=== PATIENT | male | born 1955 ===

== ENCOUNTER 2024-06-11 04:15 | Day surgery (SDC) | payer OTHER ==
[2024-06-03 16:09] VITALS: BMI 28.3
[2024-06-11] MEDS ORDERED: BUPIVACAINE HCL/PF 0.25% (2.5MG/ML) 10 ML VIAL ONE (07:21)
[2024-06-11] MEDS ORDERED: HEPARIN NA (PORCINE) 5,000 UNITS/ML 1ML VIAL ONE (07:22)
[2024-06-11] MEDS ORDERED: BUPIVACAINE HCL/PF 0.5% (5MG/ML) 10 ML VIAL ONE (07:22)
[2024-06-11] MEDS ORDERED: ETOMIDATE 20 MG/10 ML VIAL IVPUSH ONE (08:03)
[2024-06-11] MEDS ORDERED: PROPOFOL 20 ML ONE (08:03)
[2024-06-11] MEDS ORDERED: DEXTROSE 50%-WATER 25 GM/50 ML DISP.SYRIN ONE (08:07)
[2024-06-11] MEDS ORDERED: SUGAMMADEX SODIUM 200 MG/2 ML VIAL ONE (08:15)
[2024-06-11] MEDS ORDERED: ROCURONIUM BROMIDE 50 MG/5 ML SYRINGE ONE (08:16)
[2024-06-11] MEDS: ceFAZolin SODIUM 1 GM VIAL IVPB ONE (08:25)
[2024-06-11] MEDS: BUPIVACAINE HCL/PF 0.5% (5MG/ML) 10 ML VIAL IJ ONE (08:40)
[2024-06-11] MEDS ORDERED: ONDANSETRON 4 MG/2 ML VIAL ONE (08:40)
[2024-06-11] MEDS ORDERED: ONDANSETRON 4 MG/2 ML VIAL IVPUSH PRN (09:10)
[2024-06-11] MEDS ORDERED: oxyCODONE HCL 5 MG TABLET PO PRN (09:11)
[2024-06-11 11:03] VITALS: RESP 18
[2024-06-11 13:12] VITALS: BP 170/62; PULSE 69; TEMP 98
== END 2024-06-11 12:05 | disposition home or self-care (01) ==
LOC: JASU-SURG 04:15
PROVIDERS: ATTEND Surgery
PROC: 0JH83XZ Insertion of Tunneled Vascular Access Device into Abdomen Subcutaneous Tissue and Fascia, Percutaneous Approach (ICD-10-PCS; 2024-06-11)
PROC: 0WHG43Z Insertion of Infusion Device into Peritoneal Cavity, Percutaneous Endoscopic Approach (ICD-10-PCS; 2024-06-11)
PROC: 0WHG43Z Insertion of Infusion Device into Peritoneal Cavity, Percutaneous Endoscopic Approach (ICD-10-PCS; principal; 2024-06-11 08:00)
DX: I12.0 Hypertensive chronic kidney disease with stage 5 chronic kidney disease or end stage renal disease (principal); E11.22 Type 2 diabetes mellitus with diabetic chronic kidney disease; N18.5 Chronic kidney disease, stage 5; N17.9 Acute kidney failure, unspecified; Z79.4 Long term (current) use of insulin
CPT/HCPCS: 82962; 86850; 86900; 86901; 94760; C1750; J1644